=== PATIENT | male | born 1945 | race Caucasian/White ===

== ENCOUNTER 2017-02-15 16:05 | Emergency (ER) | payer MEDICARE ==
[~2017-02-15] VITALS: Ht 177.8 cm; Wt 98.0 kg
[~2017-02-15 16:05] MED LIST: ASPI81 CHEW; NEXI40CA PO; ROSU40 OR; SYNT150T OR; TRAM50 PO
[2017-02-15 16:15] VITALS: BP 149/68; PULSE 75; RESP 16; TEMP 98.6; O2SAT 96
--- NOTE | 2017-02-15 16:53 | PD ---
HPI Chief Complaint: Injury Time Seen by Provider: 16:38 Travel History International Travel<30 days: No Contact w/Intl Traveler<30days: No Traveled to known affect area: No History of Present Illness HPI 71 year-old male presents to the emergency room for evaluation of right-sided rib pain after trip and fall earlier today. Patient was exiting an aircraft when he tripped over tubing and fell about 3 feet to the ground. States his hands were occupied and rather than stretching them to catch himself, the right hand got caught under his right rib cage. He was holding a laser that jammed into his right rib cage. Since then, he has had pain in the right anterior rib that radiates into his axilla and is worse when he moves his arm. Denies difficulty breathing but reports pain with deep breathing. Patient denies hitting his head or loss of consciousness. States he has mild right-sided thoracic back pain but no other injuries. He has not taken anything for pain. PFSH Past Medical History High Cholesterol: Yes GERD: Yes Thyroid Disease: Yes Past Surgical History Endocrine Surgery: Yes (THYROIDECTOMY) Social History Alcohol Use: Yes (1 GLASS OF WINE 5X WEEK) Tobacco Use: No Substance Use: No Allergies-Medications (Allergen,Severity, Reaction): Coded Allergies: No Known Allergies (Unverified , 02/15/17) Reported Meds & Prescriptions Reported Meds & Active Scripts Active Lortab (Hydrocodone-Acetaminophen) 5-325 Mg Tab 1 Tab PO Q6H PRN Reported Nexium (Esomeprazole DR) 40 Mg Capdr 40 Mg PO DAILY PRN Synthroid (Levothyroxine Sodium) 175 Mcg Tab 175 Mcg PO DAILY Crestor (Rosuvastatin Calcium) 40 Mg Tab 40 Mg PO DAILY Aspirin 81 Mg Chew 81 Mg CHEW DAILY Review of Systems Except as stated in HPI: all other systems reviewed are Neg Physical Exam Narrative GENERAL: Well-nourished, well-developed male in no acute distress. Afebrile. Ambulatory. SKIN: Focused skin assessment warm/dry. No erythema or ecchymosis. HEAD: Normocephalic. EYES: No scleral icterus. No injection or drainage. NECK: Supple, trachea midline. No JVD or lymphadenopathy. CARDIOVASCULAR: Regular rate and rhythm without murmurs, gallops, or rubs. RESPIRATORY: Breath sounds equal bilaterally. No accessory muscle use. CHEST: Tenderness to palpation of the right anterior rib #4. No deformity or crepitance. No retractions or use of accessory muscles. Data Data Last Documented VS Vital Signs Date Time Temp Pulse Resp B/P (MAP) Pulse Ox O2 Delivery O2 Flow Rate FiO2 02/15/17 16:15 98.6 75 16 149/68 (95) 96 Orders Orders Ribs, Uni (W/Exp Cxr-Min 3vw) (02/15/17 ) Resp Incentive Spirometry (02/15/17 ) MDM Medical Decision Making Medical Screen Exam Complete: Yes Emergency Medical Condition: Yes Medical Record Reviewed: Yes Differential Diagnosis contusion, fracture, intercostal strain, spasm Narrative Course 71-year-old male presents to the emergency room for evaluation of right-sided, sharp rib pain after falling just prior to arrival. Patient fell forward landing with his right hand under his chest. He was holding a laser. Denies any other injuries. Did not hit his head or lose consciousness. Since then he has had pain with movement of his right upper extremity or deep breathing. Denies difficulty breathing. Vital signs stable. Physical exam reveals no erythema or ecchymosis. Anterior rib #4 is tender to palpation. No crepitus or obvious deformity. Lung sounds clear and equal bilaterally. X-ray of the ribs shows no displaced rib fracture or evidence of pneumothorax. This is likely rib contusion or nondisplaced fracture. Incentive spirometer ordered. Patient declined pain medication in the ED. Patient told to take Lortab for pain and follow-up with PCP or return as needed. He understands and agrees to plan. Diagnosis Primary Impression: Contusion of rib on right side Qualified Codes: S20.211A - Contusion of right front wall of thorax, initial encounter Referrals: Primary Care Physician Additional Instructions: Rest and drink plenty of fluids. Use incentive spirometer as directed, to prevent pneumonia. Tylenol as directed, as needed for pain. Apply ice to the affected area for 20 minutes at a time, as needed for pain and swelling. Follow-up with a primary care physician. Return to the emergency room for worsening symptoms. Med/Other Pt SpecificInfo: Prescription(s) given Scripts Hydrocodone-Acetaminophen (Lortab) 5-325 Mg Tab 1 TAB PO Q6H Y for PAIN, #15 TAB 0 Refills Prov: Дмитрий Ennis MD 02/15/17 Disposition: 01 DISCHARGE HOME Condition: Stable Sakina Faulkner Feb 15, 2017 16:52
[2017-02-15] MEDS ORDERED: ROSU40 PO (16:59)
[2017-02-15] MEDS ORDERED: SYNT175T PO (16:59)
[2017-02-15] MEDS ORDERED: ASPI81CH CHEW (16:59)
[2017-02-15] MEDS ORDERED: NEXI40CA PO (16:59)
--- NOTE | 2017-02-15 17:18 | RADRPT ---
EXAM DATE/TIME: 02/15/2017 16:49 [facility] COMPARISON: No previous studies available for comparison. INDICATIONS : Upper right rib pain post fall today. MEDICAL HISTORY : None. SURGICAL HISTORY : None. ENCOUNTER: Initial ACUITY: 1 day PAIN SCORE: 4/10 LOCATION: Right upper chest FINDINGS: Multiple views of the right ribs were performed. There is no evidence of displaced fracture. No daniel tructive lesions or areas of periosteal thickening are seen. Expiratory view of the chest is negativ e for pneumothorax. The mediastinal structures are midline. CONCLUSION: Negative for displaced rib fracture. Noah Clark MD FACR on February 15, 2017 at 17:16 Board Certified Radiologist. This report was verified electronically.
[2017-02-15] MEDS ORDERED: HYDR-3533 PO (17:37)
== END 2017-02-15 17:45 | disposition home or self-care (01) ==
LOC: PHEFT 16:05
DX: S20.211A Contusion of right front wall of thorax, initial encounter (principal); W01.0XXA Fall on same level from slipping, tripping and stumbling without subsequent striking against object, initial encounter; Y92.520 Airport as the place of occurrence of the external cause; E07.9 Disorder of thyroid, unspecified; K21.9 Gastro-esophageal reflux disease without esophagitis; E78.00 Pure hypercholesterolemia, unspecified
CPT/HCPCS: 71101; 94150; 99283